=== PATIENT | female | born 1925 | race Caucasian/White ===

== ENCOUNTER 2016-08-07 08:03 | Inpatient (IN) | payer MEDICARE, OTHER ==
[~2016-08-07] VITALS: Ht 160 cm; Wt 67.2 kg
[2016-08-07] VITALS (13 sets, daily range): BP systolic 119–176; BP diastolic 47–69; PULSE 60–78; RESP 12–18; O2SAT 93–100
[~2016-08-07 08:03] MED LIST: LISI40TA PO; LOVA20TA PO
--- NOTE | 2016-08-07 08:05 | ED.REPORT ---
HPI-General Illness Date of Service Aug 07, 2016 ED Provider: Horacio Moctezuma MD An 89 year old female with a history of colon cancer, hyperlipidemia and hypertension presents to the ED via EMS complaining of weakness that began this morning. Patient arrived from [facility]. EMS report that the patient was eating breakfast when she experienced a syncopal episode and her head fell onto the table. Patient was responsive but not at her baseline. She was able to ambulate at the scene. EMS state that the patient had a second syncopal episode and became bradycardiac in the 30's-40's with pinpoint pupils upon arrival to the ED. EMS report that the patient has been having diarrhea for the past 2-3 weeks. Patient has also been experiencing increased fatigue and general malaise. Patient denies any diarrhea but reports discharging "yellow liquid". She denies any hematochezia, nausea, vomiting, fever, chills, cough, worsening confusion or recent falls. Nursing Notes Stated Complaint: WEAKNESS/DIARRHEA Chief Complaint: General Complaint Nursing Notes Reviewed: Yes Allergies: Coded Allergies: No Known Allergies (Unverified , 08/07/16) Scheduled Donepezil (Donepezil) 10 Mg Tablet 20 MG PO HS Lisinopril (Lisinopril) 20 Mg Tablet 20 MG PO DAILY Metoprolol Tartrate (Metoprolol Tartrate) 25 Mg Tablet 25 MG PO BID General Time Seen by MD: 08:05 Chief Complaint Other (Altered Mental State) Hx Obtained From: Patient, EMS Arrived By: Ambulance Sudden in Onset?: No Onset Occurred: 1 - 4 hours ago Symptom Duration: Since onset Associated with: Reports: Syncope, Weakness, Denies: Nausea, Vomiting Pertinent Negative: Pt denies other symptoms Recent Healthcare: No recent doctor visit, No recent hospitalization Past Medical History Past Medical History Notes: PCP: Dr. Juliano Navarro MD Past Medical History Reports: Cancer (Colon ), Hyperlipidemia, Hypertension Past Surgical History Colectomy 2011 Oophorectomy Reports: Cholecystectomy Smoking History Never Smoker Social History Other Social History: Good social support, Lives in detention Ambulatory Status Walker Review of Systems Limited ROS due to mental status Full Review of Systems Constitutional: Reports: Fatigue, Malaise, Denies: Chills, Fever Respiratory: Denies: Non-productive cough Cardiovascular: Denies: Chest pain GI: Reports: Diarrhea, Denies: Hematochezia, Nausea, Vomiting Neurologic: Reports: Syncope, Denies: Confusion Psychiatric: Reports: Change mental status, Denies: Confusion Complete sys rev & neg: except as marked. Physical Exam Vital Signs Vital Signs Date Time Temp Pulse Resp B/P Pulse Ox O2 Delivery O2 Flow Rate FiO2 08/07/16 11:30 65 12 119/60 98 Nasal Cannula 2 08/07/16 11:00 65 14 152/47 98 Nasal Cannula 2 08/07/16 10:30 64 15 98 Nasal Cannula 2 08/07/16 10:00 62 13 99 Nasal Cannula 2 08/07/16 09:30 66 15 100 Nasal Cannula 2 08/07/16 09:00 61 14 99 Nasal Cannula 2 08/07/16 08:30 60 16 119/48 93 Room Air 08/07/16 08:05 36.6 69 17 176/69 93 Room Air Initial VS: Reviewed Extremities: Vascular intact, Neuro intact, No swelling (No calf swelling ) , No tenderness Psychiatric: Mood/affect normal, Behavior normal, Normal thought content General/Constitutional: Awake, Alert Alertness: Positive: Confused, Somnolent Head / Eyes: Atraumatic, Normocephalic, PERRL ENT: Atraumatic, Airway patent Mouth: Positive: Mucous membranes dry Respiratory / Chest: Atraumatic, Breath sounds NL, Breath sounds = bilat Cardiovascular: Heart rate NL, Regular rhythm, Heart sounds NL, No gallop, No murmurs, No rubs Abdomen: Atraumatic, Soft, Non-tender, No distention Skin: Atraumatic, Color NL, Warm (well perfused), Dry, Intact Neurologic: Speech NL Mental Status: Positive: Confused, Somnolent NERUO: No lateralized neuro deficits Patient is moving all 4 extremities Interpretation & Diagnostics Lab Results Interpretation Result Diagram: 08/07/16 0822 08/07/16 0822 Test 08/07/16 08:22 08/07/16 08:40 08/07/16 09:54 White Blood Count 11.1th/mm3 (3.8-10.1) Red Blood Count 4.64mil/mm3 (3.90-5.20) Hemoglobin 14.5g/dL (12.0-15.6) Hematocrit 44.5% (35.0-46.0) Mean Corpuscular Volume 95.9fL (81-100) Mean Corpuscular Hemoglobin 31.3pg (27.0-35.0) Mean Corpuscular Hemoglobin Concent 32.6% (32.0-37.0) Red Cell Distribution Width 13.2% (12.3-15.4) Platelet Count 217bil/L (150-400) Neutrophils (%) (Auto) 71.7% (40-74) Lymphocytes (%) (Auto) 16.4% (14-46) Monocytes (%) (Auto) 8.8% (4-12) Eosinophils (%) (Auto) 2.5% (0-5) Basophils (%) (Auto) 0.2% (0-3) Prothrombin Time 9.7sec (8.1-12.5) Prothromb Time International Ratio 0.91ratio Sodium Level 140mEq/L (134-144) Potassium Level 4.0mEq/L (3.5-5.2) Chloride Level 104mEq/L (97-108) Carbon Dioxide Level 24mmol/L (18-29) Blood Urea Nitrogen 12mg/dL (8-27) Creatinine 0.44mg/dL (0.57-1.00) Estimat Glomerular Filtration Rate 193mL/min (>59) Glucose Level 127mg/dL (60-99) Calcium Level 9.2mg/dL (8.5-10.1) Total Bilirubin 0.6mg/dL (0.0-1.2) Aspartate Amino Transf (AST/SGOT) 20U/L (0-50) Alanine Aminotransferase (ALT/SGPT) 13U/L (0-32) Alkaline Phosphatase 64U/L (25-165) Total Protein 7.0g/dL (6.4-8.4) Albumin 4.0g/dL (3.4-5.0) Lactic Acid Level 1.5mmol/L (0.4-2.0) Urine Color Yellow (YELLOW) Urine Appearance Clear (CLEAR,HAZY) Urine pH 6.0 (5.0-8.0) Urine Specific [place] 1.025 (1.003-1.035) Urine Protein Negativemg/dL (NEG,TRACE) Urine Glucose (UA) Negativemg/dL (NEGATIVE) Urine Ketones Negativemg/dL (NEGATIVE) Urine Occult Blood Negative (NEGATIVE) Urine Nitrite Negative (NEGATIVE) Urine Bilirubin Negative (NEGATIVE) Urine Urobilinogen Normalmg/dL (NORMAL) Urine Leukocyte Esterase Trace (NEGATIVE) Urine RBC 0-2/hpf (0-2) Urine WBC 0-5/hpf (0-5) Urine Epithelial Cells Occasional/hpf (NONE-MOD) Urine Crystals None seen (NONE SEEN) Urine Bacteria None/hpf (NONE-FEW) Urine Hyaline Casts None/lpf (NONE) Urine Granular Casts None seen (NONE SEEN) Urine Waxy Casts None seen (NONE SEEN) Urine Red Blood Cell Casts None seen (NONE SEEN) Urine White Blood Cell Casts None seen (NONE SEEN) Urine Mucus Present (None Seen) Urine Trichomonas None seen (NONE SEEN) Urine Yeast None (NONE SEEN) Urinalysis Comment None Urine Culture Reflexed Indicated ECG Interpretation ECG Interpretation: Normal Sinus Rhythm with 57 bpm Normal axis Normal interval T waves inverted in lateral leads No ST elevation Time: 08:12 Interpreted by: ED physician Normal ECG Interpretation: No change from prior ECGs X-Ray Chest Interpretation Chest Xray Interpretation: IMPRESSION: No acute cardiopulmonary findings. Dictated by: Argentina June M.D. on 08/07/2016 at 9:18 Interpretation / Wet Read by: Interpret - Radiologist CT Head Interpretation IMPRESSION: 1. No acute intracranial findings. 2. Extensive findings likely associated with microvascular ischemic changes. Dictated by: Argentina June M.D. on 08/07/2016 at 9:01 Study: Head CT no contrast Interpretation / Wet Read by: Interpret - Radiologist Re-Eval/Medical Decision Med Decision/Clinical Course In summary the patient is an 89 year old female with a history of colon cancer, hyperlipidemia and hypertension who presents to the ED via EMS complaining of weakness that began this morning. Patient arrived from [facility]. EMS reports that the patient was eating breakfast when she experienced a syncopal episode and her head fell onto the table. Patient was responsive but not at her baseline. She was able to ambulate at the scene. EMS state that the patient had a second syncopal episode and became bradycardiac in the 30's-40's with pinpoint pupils upon arrival to the ED. Stat medical was called and I went immediately to the bedside to evaluate the patient. EKG was obtained demonstrating a sinus rhythm in the 60s. The patient was confused and unable to provide much history though she had a stable blood pressure and good oxygen saturation on room air. Patient was maintained on continuous cardiac monitoring and pulse oximetry. The patient reported nausea and was treated with Zofran. She appeared dehydrated and we administered IV fluids. I suspect that her dehydration is multifactorial and likely in part related to previous colectomy and significant diarrhea at baseline. The patient's altered mental status imaging was obtained as below: Head CT unremarkable Chest x-ray unremarkable Upper studies notable as below Leukocytosis of 11.3 CBC unremarkable Chemistry unremarkable Coag studies unremarkable UA equivocal for urinary tract infection Patient's mental status improved significantly during emergency department course. I discussed the patient with the admitting hospitalist requested that the patient be treated with ceftriaxone for possible urinary tract infection. 1 g of ceftriaxone was administered. Due to lack of bed availability agent was here in the emergency department though technically admitted to the hospitalist service. I was informed after admitting the patient that she was observed to be in complete heart block and then asystole on the monitor which time her nurse checked her peripheral pulses and was unable to detect a pulse. The patient reportedly was given less than 1 minute of chest compressions at which time she was noted to be awake, pulses were rechecked and were present. Vital signs thereafter were within normal limits. In reviewing the patient's telemetry I do not detect an episode of complete heart block or asystole. This was discussed further with the admitting hospitalist and the patient's family. Given that she is DNR/DNI no further attempts at CPR or be taken should she develop recurrent cardiac event. The patient remained admitted to the hospitalist service. There were no other acute events throughout my involvement in her care and she remained stable. Time of Eval: 09:35 Patient Status: Condition improved Re-Evaluation/Progress Note: Patient is rechecked. Further history is obtained from the patient's daughter. She is informed her lab results, CT results, X-ray results and diagnosis. Consultation : Referral / Consult Name: Cristobal Jackson MD Consulted With: Hospitalist Call Returned at: 11:46 Architectural Renderer: Will see patient, Agrees with eval, Agrees with plan, Accepts admit Counseled Regarding: Diagnosis, Lab results, Need for admission Discharge & Departure Primary Impression: Altered mental status Altered mental status type: unspecified Qualified Code: R41.82 - Altered mental status, unspecified Additional Impressions: Dehydration Cardiac arrest Bradycardia Asystole Diarrhea Syncope Syncope type: unspecified Qualified Code: R55 - Syncope and collapse Disposition: ADMITTED TO HOSPITAL Discharge Condition All VS Reviewed: Yes Condition: Stable Referrals: Juliano Navarro MD (PCP) Crit Care Except Billable Proc Time Spent: 135-164 minutes Services Performed: Patient management by me, Time spent at bedside, Reviewing test results, Reviewing imaging, Discussing patient care, Documentation in record, Time with fam/surrogate Scribe Attestation Portions of this note were transcribed by Subha Sandoval. I, Dr. Moctezuma personally performed the history, physical exam and medical decision-making; I reviewed and confirmed the accuracy of the information in the transcribed note. Signed by: Subha Sandoval, 08/07/16, 1147. copies to: Juliano Navarro MD, Beck O MD Aug 07, 2016 08:05 SUBHA SANDOVAL Aug 07, 2016 08:15
[2016-08-07] MEDS ORDERED: 0.9% Sodium Chloride 1,000 ML IV ONE ×2 (08:16→08:21)
[2016-08-07] MEDS ORDERED: Alum-Mag Hydrox-Simeth 30 mL Suspension PO PRN ×2 (08:20→13:30)
[2016-08-07] MEDS ORDERED: Ondansetron 2 mg/mL 2 mL Inj IVPUSH PRN ×2 (08:20→13:30)
[2016-08-07] MEDS ORDERED: Ondansetron 2 mg/mL 2 mL Inj IVPUSH ONE (08:25)
[2016-08-07 08:28] LABS: BASOPHILS % (AUTO) 0.2 % (0-3); EOSINOPHILS % (AUTO) 2.5 % (0-5); MONOCYTES % (AUTO) 8.8 % (4-12); Mean Corpuscular Hemoglobin 31.3 pg (27.0-35.0); Mean Corpuscular Volume 95.9 fL (81-100); NEUTROPHILS % (AUTO) 71.7 % (40-74); Platelet Count 217 bil/L (150-400)
[2016-08-07 08:31] LABS: INR 0.91 ratio
--- NOTE | 2016-08-07 09:03 | DRSVH ---
PROCEDURE: CT BRAIN WITHOUT CONTRAST ([id number]) INDICATIONS: ams TECHNIQUE: Noncontrast 4.5 mm thick angled axial sections acquired from the foramen magnum to the vertex, with c oronal reformats. COMPARISON: [facility], CT, BRAIN W/O CONTRAST, 04/24/2013, 9:39. FINDINGS: Image quality: Excellent. CSF spaces: Basal cisterns are patent. No extra-axial fluid collections. The ventricles are symmet heavenly in size and shape. Brain: No intracranial bleeds or masses. There is cerebral volume loss for age, with resultant vent ricular and sulcal prominence. There are periventricular and deep white matter chronic small vessel ischemic changes. There is a small left lacunar infarct. There is intracranial internal carotid arter y atherosclerosis. Skull and face: Calvarium and visualized facial bones appear intact, without suspicious lesions. Th ere is a stable right frontal osteoma or small calcified meningioma. Sinuses: Visualized sinuses and mastoids are clear. IMPRESSION: 1. No acute intracranial findings. 2. Extensive findings likely associated with microvascular ischemic changes. Dictated by: Argentina June M.D. on 08/07/2016 at 9:01 Approved by: Argentina June M.D. on 08/07/2016 at 9:01
--- NOTE | 2016-08-07 09:20 | DRSVH ---
PROCEDURE: X-RAY CHEST ONE VIEW, PORTABLE ([id number]) INDICATIONS: ALTERED MENTAL STATUS TECHNIQUE: One view of the chest was acquired. COMPARISON: [facility], , CHEST 1VW (PORTABLE), 04/24/2013, 9:23. FINDINGS: Surgical changes and devices: None. Lungs and pleura: No pleural effusions or pneumothorax. Lungs are clear. Mediastinum: Mediastinal contours appear normal. Heart size is normal. Bones and chest wall: No suspicious bony lesions. Overlying soft tissues appear unremarkable. IMPRESSION: No acute cardiopulmonary findings. Dictated by: Argentina June M.D. on 08/07/2016 at 9:18 Approved by: Argentina June M.D. on 08/07/2016 at 9:18
[2016-08-07 11:08] LABS: APPEARANCE,URINE CLEAR (CLEAR,HAZY); COLOR,URINE YELLOW (YELLOW); OCCULT BLOOD,URINE NEGATIVE (NEGATIVE); UROBILINOGEN,URINE NORMAL (NORMAL)
[2016-08-07] MEDS ORDERED: Bupivacaine-MPF 0.5% 30 mL Inj ONE (11:18)
[2016-08-07] MEDS ORDERED: Heparin 5,000 Units/500 mL NS Premix IV ONE (11:18)
[2016-08-07] MEDS ORDERED: fentaNYL-PF 50 mCg/mL 2 mL Inj ONE (11:18)
[2016-08-07] MEDS ORDERED: 0.9% Sodium Chloride 250 ML ONE ×2 (11:18→21:29)
[2016-08-07] MEDS ORDERED: cefTRIAXone Inj 1,000 MG in IV Premix 1 EACH IV ONE ×2 (11:45→22:10)
[2016-08-07] MEDS ORDERED: Polyethylene Glycol (PEG) 17 Gm Powder PO PRN (13:30)
[2016-08-07] MEDS ORDERED: 0.9% Sodium Chloride 1,000 ML ONE (13:50)
--- NOTE | 2016-08-07 14:39 | CONS ---
[address] [address] CONSULTATION REPORT PATIENT: ADAL LORA : 1925 MR#: [id number] ADMIT: 08/07/2016 JOB ID: [id number] DATE OF SERVICE: 08/07/2016 CARDIOLOGY CONSULTATION: CHIEF COMPLAINT: Fall. HISTORY OF PRESENT ILLNESS: The patient is an 89-year-old woman. She has hypertension, hyperlipidemia, memory loss. She says that her biggest issue is severe diarrheal illness with water-like stools but upon closer conversation with the patient and her daughter, they are really here because of also frequent falls. Apparently, she has paroxysmal AFib. She has had multiple falls. The patient does not recall whether she had loss of consciousness, and in particular during monitoring in the emergency department at 12:40 p.m., she went from normal sinus rhythm at 70 beats per minute to intermittent complete heart block with a very long pause. It was at least over 10 seconds. Then, she had a brief 5-beat run of VT in there and then another episode of bradycardia-mediated VT and then normal sinus rhythm was restored on its own afterwards with sternal rub. The patient does not recall this incident, and she has no complaints other than her bottom itching from her diarrhea. PAST MEDICAL HISTORY: 1. Paroxysmal AFib. The patient has never been referred to a financial systems analyst. She is closely monitored by Dr. Navarro. She is on aspirin and rate control. 2. Hypertension. 3. Hyperlipidemia. 4. Memory loss. Apparently, this patient is still able to live independently at [facility]. While she cannot do cooking or her own housework, she is still remarkably active. SOCIAL HISTORY: She lives in independent living at [facility]. She is close with her children. Her daughter Sav was at the bedside, and her son was available by phone. Sav is the patient's power of patent attorney 99. FAMILY HISTORY: No pacemaker or dysrhythmias in her family. PAST SURGICAL HISTORY: She had a colon adenoma that was removed five years ago with concurrent . REVIEW OF SYSTEMS: Significant for nausea, constant diarrhea without abdominal discomfort, history of falls in the past, and near syncope. Otherwise, 10-point review of systems is negative. ALLERGIES: No known drug allergies. HOME MEDICATIONS: 1. Toprol-XL 25 mg twice a day. 2. Lisinopril 20 mg daily. 3. Donepezil 10 mg 2 pills every night. PHYSICAL EXAMINATION: At this moment in time, heart rate is 74 beats per minute. Her blood pressure is 120/80. She is on room air, saturating 98%. Very pleasant woman. Eyes: No scleral icterus. Neck: Supple. No carotid bruits. Heart: Normal S1, S2. No murmurs. Lungs: Clear to auscultation anteriorly. Abdomen: Soft, positive bowel sounds. No hepatosplenomegaly. Extremities: Warm, well perfused. No clubbing, cyanosis, or edema. Skin: No rashes or lesions. LABORATORIES: Potassium 4. Lactic acid 1.5. Transaminases are normal. Glucose 127. CBC showed elevated white count of 11.1. INR 0.9. Urinalysis showed trace urobilinogen, occasional epithelial cells. IMAGING: Her chest x-ray showed no acute cardiopulmonary findings, and her brain CT showed old microvascular change. ASSESSMENT AND PLAN: In summary, this is an 89-year-old woman. She has paroxysmal atrial fibrillation. She had runs of nonsustained ventricular tachycardia. The plan for this patient under normal circumstances would be a permanent pacemaker implant but she declined permanent pacemaker implant. She is of sound mind. She is accompanied by her daughter who is the power of patent attorney in their family. They are completely united in the idea that she wants nothing done that would slow the natural progression of her at her age. So, as a result, we will continue to support her in this journey and will get a palliative care consultation. I am signing off at this juncture because the family does not desire any aggressive interventions, they do not desire a temporary pacemaker, they do not desire a permanent pacemaker. I did question the family that it is possible that she might be fine tomorrow and may not have this problem in the future, maybe this has to do with reaction to metoprolol. However, I told them this is very concerning and I offered them the full range of options from hospice care to invasive therapy, and they elected to go with hospice level care. Thank you very much for the opportunity to evaluate this woman.
[2016-08-07] MEDS ORDERED: LISI-567 PO (14:40)
[2016-08-07] MEDS ORDERED: METO25TA6 PO (14:40)
[2016-08-07] MEDS ORDERED: DONE10TA42 PO (14:40)
--- NOTE | 2016-08-07 16:05 | PCM.HPMED ---
Subjective Date of Service Aug 07, 2016 Primary Provider: Admitting Physician: Alonzo Pink MD Primary Care Physician: Juliano Navarro MD Attending Physician: Alonzo Pink MD Admit Status: From the Emergency Department Chief Complaint: syncope History of Present Illness: 89 yr old female with history of afib, dementia, hypertension, hyperlipidemia presented to the ER with complaint of syncope and weakness. Pt is seen with her daughter in the room, who is the DPOA. Pt reports that last night she began feeling ill, with general fatigue and diarrhea. This morning, the patient was eating breakfast at [facility] when she passed out, and 911 was called. Pt denies any fevers, chills, myalgias. She denies any dysuria, hematuria, abdominal pain nausea or vomiting. Pt reports general weakness, and shortness of breath. Pt notes that she does not use supplemental oxygen at home. While in the ER, patient sustained a long pause with 3rd degree heart block. Sternal rub performed by nurse and patient regained consciousness. Patient and family expressed that they are not interested in pacemaker placement or other invasive treatments. Discussed wishes with patient and her family. Both report that the patient is DNR/DNI, and at this time do not feel that they want to pursue any treatment. Pt is interested in comfort only, and would like to go on Hospice if possible. Pt does not want any interventions.Family and pt report they are not interested in treating the UTI or receiving anything via IV. Pt is not interested in taking any of her home medications. Family note that their focus is comfort. Review of Systems: A comprehensive review of systems was conducted with the patient and found to be negative except as above in the History of Present Illness. Allergies Coded Allergies: No Known Allergies (Unverified , 08/07/16) Home Medications Donepozil Metoprolol Lisinopril PMH 1. History of colon cancer status post partial colectomy. 2. Dementia. 3. Hypertension. 4. Hypercholesterolemia. Surgical History Hemicolectomy Tonsillectomy Cholecystectomy Ovarian cyst removal Family History non contributory Social History Hx Alcohol Use: Yes (1 CAN OF BEER SATURDAYS IN SUMMER) Hx Substance Use: No Hx Tobacco Use: No Smoking Status: Never Smoker Living Arrangement: Other ([facility]) Exam Vital Signs Vital Sign - Last Date Time Temp Pulse Resp B/P Pulse Ox O2 Delivery O2 Flow Rate FiO2 08/07/16 12:16 68 08/07/16 11:30 12 119/60 98 Nasal Cannula 2 08/07/16 08:05 36.6 Exam General: No acute distress, well-developed, well-nourished, appropriately interactive HEENT: Normocephalic, atraumatic. Anicteric sclerae, moist conjunctivae. Oropharynx with dry mucosa. Neck: Supple with full range of motion. Cardiovascular: Bradycardia and regular rhythm with no murmurs, rubs, or gallops appreciated Pulmonary: Nasal canula in placed. Pt is apneic at times. Clear to auscultation bilaterally with no crackles, wheezes, or rhonchi. Normal respiratory effort with no use of accessory muscles. Abdomen: Bowel tones present. Soft, nontender, nondistended. Extremities: No clubbing, cyanosis, edema appreciated. Skin: Normal temperature, turgor, and texture; no rash, ulcers, or subcutaneous nodules appreciated. Psychiatric: Normal mood and affect. Alert. Lab and Diagnostics Result Diagram: 08/07/1682108/07/16 0822 X-Rays, CTs and MRIs PROCEDURE: X-RAY CHEST ONE VIEW, PORTABLE ([id number]) FINDINGS: Surgical changes and devices: None. Lungs and pleura: No pleural effusions or pneumothorax. Lungs are clear. Mediastinum: Mediastinal contours appear normal. Heart size is normal. Bones and chest wall: No suspicious bony lesions. Overlying soft tissues appear unremarkable. IMPRESSION: No acute cardiopulmonary findings. Dictated by: Argentina June M.D. on 08/07/2016 at 9:18 Approved by: Argentina June M.D. on 08/07/2016 at 9:18 PROCEDURE: CT BRAIN WITHOUT CONTRAST ([id number]) FINDINGS: Image quality: Excellent. CSF spaces: Basal cisterns are patent. No extra-axial fluid collections. The ventricles are symmetric in size and shape. Brain: No intracranial bleeds or masses. There is cerebral volume loss for age , with resultant ventricular and sulcal prominence. There are periventricular and deep white matter chronic small vessel ischemic changes. There is a small left lacunar infarct. There is intracranial internal carotid artery atherosclerosis. Skull and face: Calvarium and visualized facial bones appear intact, without suspicious lesions. There is a stable right frontal osteoma or small calcified meningioma. Sinuses: Visualized sinuses and mastoids are clear. IMPRESSION: 1. No acute intracranial findings. 2. Extensive findings likely associated with microvascular ischemic changes. Dictated by: Argentina June M.D. on 08/07/2016 at 9:01 Approved by: Argentina June M.D. on 08/07/2016 at 9:01 Assessment & Plan 89 yr old female with history of afib, dementia, hypertension, hyperlipidemia presented to the ER with complaint of syncope and weakness. Acute third degree heart block with greater than 10 second pause, ongoing -While in the ER pt sustained long pause due to 3rd degree heart block -Cardiology met with family and patient and discussed treatment options -Family declines pacemaker placement or any invasive treatments Acute episodes of syncope, present on admission, ongoing -CT brain performed in ER demonstrating "No acute intracranial findings.Extensive findings likely associated with microvascular ischemic changes." -Patient declines evaluation or treatment Acute pyelonephritis, present on admission, ongoing -Patient currently denying any symptoms. -UA performed in ER demonstrating trace leukocyte esterase and WBC -Pt declines treatment or evaluation -No IV fluids, no antibiotics started End of life care issues,present on admission, ongoing -Discussed code status with patient and her daughter ( who is DPOA), pt is DNR/ DNI -Pt and family would like to sign up for Hospice -Social Work has contacted Hospice, and they will see patient today. PCP: Dr Navarro Pain Evaluation: Adequate Pain Control Resuscitation Status: DNR/DNI:Do Not Resuscitate/Intubate Attending Statement The patient was seen and examined together with Dr. Arora on 08/08/2016 and I agree with the history, exam and plan as outlined in the note above. Oxana Arora DO Aug 07, 2016 13:32 Sergio Copeland MD Aug 08, 2016 09:43
--- NOTE | 2016-08-07 18:47 | NUR ---
Heart Block Pt. placed on tele per orders this a.m. Shortly after placement, pt. went into complete heart block at 1235 for around 20 seconds. Pt. came to spontaneously and remained oriented after episode. Nursing staff present immediately after monitor alarm. paged and was in the room shortly after. Vitals before and after remain stable. had discussion with pt. and pts. daughter to confirm code status. Pt. wishes to have no interventions done in the event of another episode. Cardiology and palliative consulted.
--- NOTE | 2016-08-07 21:00 | NUR ---
confusion patient confused. believes she is "at home." reoriented to place and time. patient states "i have no idea how i came here." explained to patient the course of the day, patient appears to have no recollection of the events. bed alarm on for safety. patient reassured. care ongoing.
[2016-08-08 01:00] VITALS: BP 128/64; PULSE 68; RESP 18; O2SAT 95
--- NOTE | 2016-08-08 03:00 | NUR ---
out of bed patient standing next to bed without asking for assistance. bed alarm ringing. placed safely back in bed. bed alarm on. door open. light on. patient reoriented.
[2016-08-08 08:42] VITALS: BP 150/73; PULSE 69; RESP 14; O2SAT 96
--- NOTE | 2016-08-08 11:08 | NUR ---
Social Work Note - Initial Assessment Chelsy Crawford is a 89 yr old who was admitted for altered mental status - found to have cardiac issues. EMR reviewed: Pt has Medicare and [facility] supplement. Her PCP is Dr Navarro. See CM initial assessment. RHEUMATOLOGY SPECIALIST met with pt - pt's DPOA/daughter Sav also in the room. Pt lives in [facility] - Independent. She has been independent at baseline - does not use any assistive devices. She goes to meals at the community room. She has no previous SNF placements, no hx of Home health. Initially, Pt was found to have a heart block - Family was concerned that she would not improve medically and [facility] came yesterday to discuss options for hospice. Pt has made improvements, is alert and oriented and family would like to consider rehab for Pt instead of hospice. RHEUMATOLOGY SPECIALIST updated [facility] . Palliative care consult is pending. RHEUMATOLOGY SPECIALIST will ask MD for a PT evaluation. Daughter would like pt to go to [facility] if Pt is eligible. Plan: PT evaluation for SNF - Pending medical course. SAM Mooney
--- NOTE | 2016-08-08 11:50 | NUR ---
Case Management: OBS brochure given and explained to pt and daughter Sav at 11:30. Lyndsey TAY RN
[2016-08-08 11:52] VITALS: BP 130/71; PULSE 63; RESP 16; O2SAT 93
--- NOTE | 2016-08-08 14:14 | NUR ---
ECHO Echo is being done at the bedside at this time.
--- NOTE | 2016-08-08 14:15 | NUR ---
ACTIVITY Patient is alert and oriented to person only. Denies chest pain. Tolerating liquids PO and diet well. Denies nausea. No emesis noted. Denies SOB. Family is at the bedside at this time. Addendum: 08/08/16 at 1436 by LUIS TEJEDA RN TRANSFER Report given to Yanira Carpenter RN. Patient will transfer to room [facility] when ECHO is done. Addendum: 08/08/16 at 1513 by LUIS TEJEDA RN TRANSFER Transferred to [facility] room 300.
[2016-08-08 15:06] VITALS: BP 156/77; PULSE 61; RESP 18; O2SAT 94
--- NOTE | 2016-08-08 15:08 | NUR ---
Transfer Pt transferred from ED to [facility] rm 3007, report received from Haile Gorman RN. Pt arrived in bed, alert and happy with daughter.
--- NOTE | 2016-08-08 15:55 | DRSVH ---
Located Within [facility] [address] [place] [address] Echocardiogram Report Name: ADAL LORA JStudy Date: 08/08/2016 Height: 64 in Hospital Exam Location: [facility] Weight: 145 lb Gender: Female BSA: 1.7 m2 : 1925 Age: 89 yrs BP: 130/71 mmHg Reason For Study: ASYSTOLE Ordering Physician: Performed By: Yanelis Noel Referring Physician: Dr. Juliano Navarro Interpretation Summary The left ventricle is normal in size. The ejection fraction is estimated to be 60-65%. LVEF has not changed significantly. Left ventricular wall motion is normal. Assessment of diastolic parameters indicates a relaxation abnormality of the left ventricle, consistent with normal filling pressures. The right ventricle is normal in size and function. The right ventricular systolic pressure is estimated at 24 mmHg assuming a right atrial pressure of 8 mm Hg. The left atrium is moderately dilated. Right atrial size is normal. There is no significant valvular heart disease. The ascending aorta is mildly enlarged, which has slightly increased in size. The aortic arch is mildly enlarged (3.5 cm) which has increased as well. Previous measurement was 2.3 cm. Procedure: A two-dimensional transthoracic echocardiogram with color flow and Doppler was performed. The study quality was technically adequate. Comparison is made with the echocardiogram of 04/24/2013. The patient was in normal sinus rhythm during the exam. Left Ventricle: The left ventricle is normal in size. Left ventricular wall thickness is at the upper limits of normal. The ejection fraction is estimated to be 60-65%. Left ventricular wall motion is normal. Spectral Doppler of the mitral inflow yields an E/A ratio that is between 0.8 and 1.5. Assessment of diastolic parameters indicates a relaxation abnormality of the left ventricle, consistent with normal filling pressures. Right Ventricle: The right ventricle is normal in size and function. Atria: The left atrium is moderately dilated. Right atrial size is normal. The interatrial septum is intact with no evidence for an atrial septal defect. There is no Doppler evidence for an interatrial shunt. Mitral Valve: The mitral valve is grossly normal. There is no mitral regurgitation noted. Aortic Valve: The aortic valve is normal in structure and function. No aortic regurgitation is present. Tricuspid Valve: The tricuspid valve is not well visualized, but is grossly normal. There is a trace or physiologic amount of tricuspid regurgitation. The right ventricular systolic pressure is estimated at 24 mmHg assuming a right atrial pressure of 8 mm Hg. Pulmonic Valve: The pulmonic valve is not well seen, but is grossly normal. There is a trace or physiologic amount of pulmonic regurgitation. There is no significant valvular heart disease. Great Vessels: The aortic root is normal size. The ascending aorta is mildly enlarged. The aortic arch is mildly enlarged. Mild atherosclerotic plaque(s) in the aortic arch. The IVC is of normal diameter and collapses less than 50% with a sniff. This suggests a right atrial pressure of 8 mm Hg. Pericardium/ Pleura There is an anterior echo-free space consistent with a fat pad. There is no pericardial effusion. MMode/2D Measurements & Calculations LVIDd: 4.3 cm RA long axis LVOT diam: 2.1 cm LVIDs: 2.6 cm LA A2 area: 21.7 cm AoV Openin.0 cm FS: 39.5 % LA A4 area: 19.1 cm RA area Ao root diam: 3.4 cm IVSd: 0.96 cm LA length (vol) Aortic Jxn: 2.8 cm LVPWd: 0.95 cm : 14.0 cm asc Aorta Diam LA vol: 74.9 ml RA vol LA vol index : 34.7 ml Ao Arch Diam RA (Proximal trans.) : 20.3 mm/ IVC diam: 1.8 cm RVDd minor : 2.8 cm LV trevino. diameter/BSALV sys. diameter/BSA (cm/m^2): 2.5 (cm/m^2): 1.5 Doppler Measurements & Calculations Ao V2 max MV E max aaron MV E/A: 0.93 TR max aaron : 112.5 cm/sec : 75.7 cm/sec Med Peak E' Aaron : 200.2 cm/sec Ao max PG MV A max aaron TR max PG : 5.1 mmHg : 81.5 cm/sec E/E' med: 10.9 : 16.0 mmHg Ao mean PG MV P1/2t: 71.9 msec Pulm A Revs Dur PA V2 max : 96.3 cm/sec LVOT Max Aaron MV A dur: 0.11 sec PA mean PG : 93.1 cm/sec ALEENA(I,D): 3.1 cm PA Accel Time sev ratio : 0.12 sec MV dec time MV P1/2t max aaron Ao V2 mean LV V1 max PG : 0.25 sec : 76.1 cm/sec Ao V2 VTI: 24.0 cm LV V1 VTI MVA(P1/2t): 3.1 cm2 : 21.2 cm ALEENA(V,D): 2.9 cm2 PA V2 mean ALEENA indexed to BSA Pulm A Revs Dur - MV A : 61.3 cm/sec (cm^2/m^2): 1.8 Dur: -0.01 msec Reading Physician:NICOLE
[2016-08-08 16:13] VITALS: PULSE 65
--- NOTE | 2016-08-08 16:51 | PCM.PNMED ---
Subjective Date of Service Aug 08, 2016 Subjective Patient reports that she is feeling better. She denies any fevers, chills, myalgia, dysuria or hematuria. Per the family, because the patient appears to be doing better, they are interested in pacemaker placement and further treatment. Family would like to discuss have pacemaker placed with Cardiology and possible discharge to SNF for rehab. Exam Vital Signs Vital Sign - Last Date Time Temp Pulse Resp B/P Pulse Ox O2 Delivery O2 Flow Rate FiO2 08/08/16 16:13 65 08/08/16 15:06 36.9 18 156/77 94 Room Air 08/07/16 16:12 1.00 Exam General: No acute distress, well-developed, well-nourished, appropriately interactive HEENT: Normocephalic, atraumatic. Anicteric sclerae, moist conjunctivae. Oropharynx with dry mucosa. Neck: Supple with full range of motion. Cardiovascular: Bradycardia and regular rhythm with no murmurs, rubs, or gallops appreciated Pulmonary: Clear to auscultation bilaterally with no crackles, wheezes, or rhonchi. Normal respiratory effort with no use of accessory muscles. Abdomen: Bowel tones present. Soft, nontender, nondistended. Extremities: No clubbing, cyanosis, edema appreciated. Skin: Normal temperature, turgor, and texture; no rash, ulcers, or subcutaneous nodules appreciated. Psychiatric: Normal mood and affect. Alert. IVs and Medications Medications Reviewed: Medications were reviewed in detail Lab and Diagnostics Result Diagram: 08/07/16 0822 08/07/16 0822 X-Rays, CTs and MRIs PROCEDURE: X-RAY CHEST ONE VIEW, PORTABLE ([id number]) FINDINGS: Surgical changes and devices: None. Lungs and pleura: No pleural effusions or pneumothorax. Lungs are clear. Mediastinum: Mediastinal contours appear normal. Heart size is normal. Bones and chest wall: No suspicious bony lesions. Overlying soft tissues appear unremarkable. IMPRESSION: No acute cardiopulmonary findings. Dictated by: Argentina June M.D. on 08/07/2016 at 9:18 Approved by: Argentina June M.D. on 08/07/2016 at 9:18 PROCEDURE: CT BRAIN WITHOUT CONTRAST ([id number]) FINDINGS: Image quality: Excellent. CSF spaces: Basal cisterns are patent. No extra-axial fluid collections. The ventricles are symmetric in size and shape. Brain: No intracranial bleeds or masses. There is cerebral volume loss for age , with resultant ventricular and sulcal prominence. There are periventricular and deep white matter chronic small vessel ischemic changes. There is a small left lacunar infarct. There is intracranial internal carotid artery atherosclerosis. Skull and face: Calvarium and visualized facial bones appear intact, without suspicious lesions. There is a stable right frontal osteoma or small calcified meningioma. Sinuses: Visualized sinuses and mastoids are clear. IMPRESSION: 1. No acute intracranial findings. 2. Extensive findings likely associated with microvascular ischemic changes. Dictated by: Argentina June M.D. on 08/07/2016 at 9:01 Approved by: Argentina June M.D. on 08/07/2016 at 9:01 Assessment & Plan 89 yr old female with history of afib, dementia, hypertension, hyperlipidemia presented to the ER with complaint of syncope and weakness. Acute third degree heart block with greater than 10 second pause, ongoing -While in the ER pt sustained long pause due to 3rd degree heart block -At admission, Cardiology met with family and patient and discussed treatment options, at that time that declined pacemaker placement or any invasive treatments -Today pt's family requesting Cardiology consult to discuss pacemaker placement. Acute episodes of syncope, present on admission, ongoing -CT brain performed in ER demonstrating "No acute intracranial findings.Extensive findings likely associated with microvascular ischemic changes." -Family initially declined treatment or evaluation. -Today pt's family requesting Cardiology consult to discuss pacemaker placement. Acute pyelonephritis, present on admission, ongoing -Patient currently denying any symptoms. -UA performed in ER demonstrating trace leukocyte esterase and WBC -Urine culture with no growth to date End of life care issues,present on admission, ongoing -Discussed code status with patient and her daughter ( who is DPOA), pt is DNR/ DNI -Pt and family met with Hospice, but at this time are not interested in going to Hospice. -Pt now interested in treatment and eventual discharge to SNF for rehab. PCP: Dr Navarro Pain Evaluation: Adequate Pain Control VTE Prophylaxis: SCDs Resuscitation Status: DNR/DNI:Do Not Resuscitate/Intubate Attending Statement The patient was seen and examined together with Dr. Arora on 08/08/2015 and I agree with the history, exam and plan as outlined in the note above. Oxana Arora DO Aug 08, 2016 16:51 Sergio Copeland MD Aug 09, 2016 10:10
[2016-08-08] MEDS: Sodium Chloride LOK Flush 10 mL Syringe IVFLUSH SCH (18:29)
[2016-08-08 21:17] VITALS: BP 179/75; PULSE 65; RESP 18; O2SAT 94
[2016-08-09] VITALS (16 sets, daily range): BP systolic 161–192; BP diastolic 61–84; PULSE 59–68; RESP 12–21; O2SAT 93–97
[2016-08-09] MEDS: Sodium Chloride LOK Flush 10 mL Syringe IVFLUSH SCH ×3 (00:31→17:11)
[2016-08-09 06:00] LABS: BASOPHILS % (AUTO) 0.3 % (0-3); EOSINOPHILS % (AUTO) 3.9 % (0-5); MONOCYTES % (AUTO) 14.8 % (4-12); Mean Corpuscular Hemoglobin 31.6 pg (27.0-35.0); Mean Corpuscular Volume 95.7 fL (81-100); NEUTROPHILS % (AUTO) 56.9 % (40-74); Platelet Count 165 bil/L (150-400)
[2016-08-09] MEDS ORDERED: CeFAZolin Inj 2 GM in IV Premix 1 EACH IV SCH (06:00)
[2016-08-09] MEDS ORDERED: 0.9% Sodium Chloride 1,000 ML IV PRN (06:00)
[2016-08-09 06:37] LABS: INR 0.93 ratio
[2016-08-09] MEDS ORDERED: CeFAZolin 2 Gm/50 mL D5W Duplex Bag IV ONE (08:58)
--- NOTE | 2016-08-09 09:29 | NUR ---
Off Floor Pt transferred to lab head for procedure at 0845.
[2016-08-09] MEDS ORDERED: HYDROcodone-APAP 5-325 mg Tablet PO PRN (10:05)
[2016-08-09] MEDS: 0.9% Sodium Chloride 1,000 ML IV SCH ×2 (10:05→17:08)
--- NOTE | 2016-08-09 10:39 | CONS ---
[address] [address] CONSULTATION REPORT PATIENT: ADAL LORA : 1925 MR#: [id number] ADMIT: 08/07/2016 JOB ID: [id number] DATE OF SERVICE: 08/09/2016 REQUESTING PHYSICIAN: Yelena Fay MD REASON FOR CONSULTATION: Syncope and intermittent complete heart block. PROBLEM LIST: 1. Intermittent complete heart block with witnessed syncope in the ER (reason for current hospitalization). 2. Paroxysmal atrial fibrillation. 3. Systemic hypertension. 4. Structurally normal heart with preserved biventricular function. MEDICATIONS: 1. Lisinopril 40 mg daily. 2. Lovastatin 20 mg daily. 3. Metoprolol 25 mg twice daily. IDENTIFICATION/HISTORY OF PRESENT ILLNESS: The patient is a pleasant 89-year-old woman with a structurally normal heart, systemic hypertension, and paroxysmal atrial fibrillation for which she was on low-dose beta blockade. She has had multiple syncopal episodes and falls. Ultimately, she presented to the ED the day before yesterday with a syncopal episode witnessed at her long term. In the ER, she had another episode, this time while on telemetry. She had a 15-20 second period of complete heart block during which she lost consciousness. Her beta blockade was stopped. An echocardiogram was obtained showing preserved biventricular function, and ultimately I had a meeting with her to discuss pacemaker implantation. She has had multiple falls as evidenced by discussion with her daughter. Some of these were mechanical falls. Others appeared to be loss of consciousness. Her syncope history dates back three years when she was admitted and first diagnosed with atrial fibrillation. IMPRESSION AND RECOMMENDATION: The patient is a pleasant 89-year-old woman with a structurally normal heart, systemic hypertension, paroxysmal atrial fibrillation, and recurrent syncope, now with a witnessed intermittent complete heart block. I recommended a dual-chamber pacemaker implantation. I discussed the risks and benefits with her and her daughter at length. Ultimately, she and her daughter wished to proceed. PLAN: Dual-chamber pacemaker implantation. Thank you very much for allowing me to participate in the care of this patient. Please call with any questions. I spent approximately 1 hour with this patient coordinating her care and reviewing her chart. Greater than 50% of this time was spent in counseling.
--- NOTE | 2016-08-09 10:46 | OP ---
[address] [address] OPERATIVE REPORT PATIENT: ADAL LORA : 1925 MR#: [id number] ADMIT: 08/07/2016 JOB ID: [id number] DATE OF SURGERY: 08/09/2016 PREOPERATIVE DIAGNOSIS(ES): 1. Intermittent complete heart block. 2. Syncope. POSTOPERATIVE DIAGNOSIS(ES): 1. Intermittent complete heart block. 2. Syncope. PROCEDURES PERFORMED: 1. Dual-chamber pacemaker implantation. 2. Left upper extremity venogram. 3. Fluoroscopy. SURGEON: Avel Walsh MD, electrophysiology attending. GUNCOTTON PACKER: Edwardo Mercado IMPLANTED DEVICES: 1. [employer] pulse generator, model OM1357, serial #[id number]. 2. Right atrial lead [employer], 2088TC, 46 cm, serial #[id number]. 3. RV lead [employer], 2088TC, 52 cm, serial #[id number]. ANESTHESIA: Bolus dosing of Versed and fentanyl were utilized for an appropriate level of sedation. INDICATION: The patient a pleasant 89-year-old woman with a structurally normal heart, syncope, and witnessed intermittent complete heart block. After discussion of risks and benefits of pacemaker implantation, she opted to proceed. PROCEDURAL DESCRIPTION: Following informed signed consent, the patient was taken to the EP laboratory in a fasting nonsedated state, where she was prepped and draped the usual sterile fashion. The left infraclavicular region was infiltrated with 40 cc of a 50/50 mixture bupivacaine and lidocaine. Once adequate anesthesia had been achieved, a 3 cm transverse incision was performed 2 cm below the left clavicle. Dissection was carried down to the pectoralis fascia, and a pocket was then fashioned using combination of electrocautery and blunt dissection. Once adequate hemostasis had been achieved, attempts to access the left axillary vein over the first rib with a micropuncture needle were unsuccessful. A left upper extremity venogram was performed. Under venographic guidance, the vessel was cannulated twice with a micropuncture needle to deploy two 0.035, 3 mm J guidewires. Over the first of these, a 6-Greek tear-away sheath was advanced. Once the guidewire was removed, an active fixation lead was advanced to the RV outflow tract 1 cm over the apex. The lead was affixed in position using its associated active fixation screw. It was connected to external analyzer and demonstrated appropriately sensed R waves, impedance, capture threshold. Lead was checked at 10 V, and there was no evidence of diaphragmatic stimulation. Over the other previously deployed J guidewire, another 6-Greek tear-away sheath was advanced. Once the guidewire was removed, an active fixation lead was advanced to the right atrial appendage. It was affixed in position using its associated active fixation screw. The lead was connected to the external analyzer and demonstrated appropriately sensed P waves, impedance, and capture threshold. The lead was checked at 10 V, and there was no evidence of diaphragmatic stimulation. Once the position and redundancy of both leads were confirmed with multiple fluoroscopic views, the leads were anchored to the prepectoralis fascia using their associated anchoring sleeves and 2-0 Ethibond sutures. The pocket was then copiously irrigated with antibiotic solution. It was connected to a generator. The generator was placed into the pocket. It was affixed to the floor of the pocket using 1-0 Ti-Cron suture. The incision was then closed with running layers of absorbable suture. The wound was dressed with skin adhesive and a small dressing. At the end of the procedure, the needle, sponge, and instrument counts were all correct. COMPLICATIONS: None. ESTIMATED BLOOD LOSS: Negligible. DEVICE MEASURED DATA: 1. Right atrial lead 3.5 mV, 410 ohms, 1.75 V at 0.4 msec. 2. RV lead greater than 12 mV, 690 ohms, 0.5 V at 0.4 msec. FINAL PROGRAM PARAMETERS: DDD 60-130 beats per minute. IMPRESSION: Successful dual-chamber pacemaker implantation. PLAN: 1. Stat portable chest x-ray. Obtain PA and lateral chest x-ray in the morning. 2. Device interrogation in the morning. 3. IV Ancef through tomorrow. 4. Keflex x7 days starting tomorrow. 5. Wound check in one week. ATTENDING STATEMENT: Avel Walsh MD, electrophysiology attending, was present for and supervised/performed all aspects of this procedure.
--- NOTE | 2016-08-09 10:57 | NUR ---
GEORGE: Pt arrived from [facility] at 1030 to [facility] bed 9, left chest dressing C/D/I, ice pack placed over site and sling on L arm. Chest Xray taken. Pt education and reinforcement about not using L arm. No c/o pain. Tolerating po intake of water. HR 60-70s
--- NOTE | 2016-08-09 10:58 | NUR ---
Palliative Care Order for Palliative Care cancelled per Dr Arora 08/09/16. PC did not see this patient. Mary Rodriguez
--- NOTE | 2016-08-09 11:57 | DRSVH ---
PROCEDURE: X-RAY CHEST ONE VIEW, PORTABLE ([id number]) INDICATIONS: For new leads placed TECHNIQUE: One view of the chest was acquired. COMPARISON: [facility], CR, XR CHEST 1VW (PORTABLE), 08/07/2016, 8:22. FINDINGS: Surgical changes and devices: There is a new left chest wall dual-lead pacemaker with leads projectin g over the right atrium and right ventricle. Lungs and pleura: No pleural effusions or pneumothorax. There is hyperinflation of the lungs with f lattening of the hemidiaphragms compatible with COPD. No acute consolidation. Mediastinum: Mediastinal contours appear unchanged. Heart size is within normal limits. Bones and chest wall: No suspicious bony lesions. Overlying soft tissues appear unremarkable. IMPRESSION: 1. No evidence of pneumothorax. 2. Findings compatible with COPD redemonstrated. Dictated by: Yong Damon M.D. on 08/09/2016 at 11:56 Approved by: Yong Damon M.D. on 08/09/2016 at 11:56
--- NOTE | 2016-08-09 12:48 | NUR ---
GEORGE ASSUMED CARE OF PT AT 1145. LEFT CHEST DRSG HAS REMAINED C/D/I, NO BLEEDING OR HEMATOMA NOTED. SLING IS ALSO ON LEFT ARM AND PT IS REMINDED REPEATEDLY OF LIMITATIONS TO LEFT ARM. PT IS TAKING FLUIDS AND CRACKERS WITHOUT DIFFICULTY AND VOIDING PER BEDPAN. PT, AND HER NURSING CARE, WERE TRANSFERRED BACK TO ROOM 3007 AT 1240. BEDSIDE REPORT AND RN TO RN HANDOFF WAS DONE WITH FANTA Barrera RN. TELE CONFIRMED WITH PLANT CYTOLOGIST.
--- NOTE | 2016-08-09 15:22 | NUR ---
Case Management: COS to IP. IMM explained to patient and family at 1506, signed copy placed in chart, patient given a copy. Abby Fiore RN
[2016-08-09] MEDS: CeFAZolin Inj 1 GM in IV Premix 1 EACH IV SCH (17:07)
--- NOTE | 2016-08-09 19:20 | PCM.PNMED ---
Subjective Date of Service Aug 09, 2016 Subjective Patient is feeling better overall. Pt continues to be somewhat confused regarding what day it is. Pt reports that she is feeling very tired following her procedure Exam Vital Signs Vital Sign - Last Date Time Temp Pulse Resp B/P Pulse Ox O2 Delivery O2 Flow Rate FiO2 08/09/16 06:39 63 08/09/16 05:10 36.9 16 168/70 93 Room Air 08/07/16 16:12 1.00 Intake and Output 08/08/16 08/08/16 08/09/16 Cumulative From/Thru 15:00 23:00 07:00 08/08/16 08:59 - 08/09/16 06:55 Intake Total 236 ml 436 ml 672 ml Output Total 475 ml 750 ml 1225 ml Balance -239 ml -314 ml -553 ml Intake Oral 236 ml 436 ml 672 ml Output Urine Total 475 ml 750 ml 1225 ml # Voids 1 1 # Bowel Movements 0 0 0 Exam General: No acute distress, well-developed, well-nourished, appropriately interactive HEENT: Normocephalic, atraumatic. Anicteric sclerae, moist conjunctivae. Oropharynx with dry mucosa. Neck: Supple with full range of motion. Cardiovascular: Bradycardia and regular rhythm with no murmurs, rubs, or gallops appreciated Pulmonary: Clear to auscultation bilaterally with no crackles, wheezes, or rhonchi. Normal respiratory effort with no use of accessory muscles. Abdomen: Bowel tones present. Soft, nontender, nondistended. Extremities: No clubbing, cyanosis, edema appreciated. Skin: Normal temperature, turgor, and texture; no rash, ulcers, or subcutaneous nodules appreciated. Psychiatric: Normal mood and affect. Alert. IVs and Medications Medications Reviewed: Medications were reviewed in detail Lab and Diagnostics Result Diagram: 08/09/1630 08/09/16 0530 X-Rays, CTs and MRIs PROCEDURE: X-RAY CHEST ONE VIEW, PORTABLE ([id number]) FINDINGS: Surgical changes and devices: None. Lungs and pleura: No pleural effusions or pneumothorax. Lungs are clear. Mediastinum: Mediastinal contours appear normal. Heart size is normal. Bones and chest wall: No suspicious bony lesions. Overlying soft tissues appear unremarkable. IMPRESSION: No acute cardiopulmonary findings. Dictated by: Argentina June M.D. on 08/07/2016 at 9:18 Approved by: Argentina June M.D. on 08/07/2016 at 9:18 PROCEDURE: CT BRAIN WITHOUT CONTRAST ([id number]) FINDINGS: Image quality: Excellent. CSF spaces: Basal cisterns are patent. No extra-axial fluid collections. The ventricles are symmetric in size and shape. Brain: No intracranial bleeds or masses. There is cerebral volume loss for age , with resultant ventricular and sulcal prominence. There are periventricular and deep white matter chronic small vessel ischemic changes. There is a small left lacunar infarct. There is intracranial internal carotid artery atherosclerosis. Skull and face: Calvarium and visualized facial bones appear intact, without suspicious lesions. There is a stable right frontal osteoma or small calcified meningioma. Sinuses: Visualized sinuses and mastoids are clear. IMPRESSION: 1. No acute intracranial findings. 2. Extensive findings likely associated with microvascular ischemic changes. Dictated by: Argentina June M.D. on 08/07/2016 at 9:01 Approved by: Argentina June M.D. on 08/07/2016 at 9:01 Assessment & Plan 89 yr old female with history of afib, dementia, hypertension, hyperlipidemia presented to the ER with complaint of syncope and weakness. Acute third degree heart block with greater than 10 second pause, ongoing -While in the ER pt sustained long pause due to 3rd degree heart block -At admission, Cardiology met with family and patient and discussed treatment options, at that time that declined pacemaker placement or any invasive treatments -Pt underwent Pacemaker placement today(08/09/16) Acute episodes of syncope, present on admission, ongoing -CT brain performed in ER demonstrating "No acute intracranial findings.Extensive findings likely associated with microvascular ischemic changes." -Family initially declined treatment or evaluation. -Pt underwent Pacemaker placement today(08/09/16) Acute pyelonephritis, present on admission, ongoing -Patient currently denying any symptoms. -UA performed in ER demonstrating trace leukocyte esterase and WBC -Urine culture with no growth to date End of life care issues,present on admission, ongoing -Discussed code status with patient and her daughter ( who is DPOA), pt is DNR/ DNI -Pt and family met with Hospice, but at this time are not interested in going to Hospice. -Pt now interested in treatment and eventual discharge to SNF for rehab. PCP: Dr Navarro VTE Prophylaxis: SCDs Resuscitation Status: DNR/DNI:Do Not Resuscitate/Intubate Attending Statement The patient was seen and examined together with Dr. Arora on 08/09/2016 and I agree with the history, exam and plan as outlined in the note above. Oxana Arora DO Aug 09, 2016 08:10 Sergio Copeland MD Aug 10, 2016 10:06
[2016-08-10] VITALS (8 sets, daily range): BP systolic 143–173; BP diastolic 69–92; PULSE 64–87; RESP 18–19; O2SAT 92–96
[2016-08-10] MEDS: CeFAZolin Inj 1 GM in IV Premix 1 EACH IV SCH (00:30)
[2016-08-10] MEDS: Sodium Chloride LOK Flush 10 mL Syringe IVFLUSH SCH ×3 (00:38→16:30)
[2016-08-10 05:46] LABS: BASOPHILS % (AUTO) 0.2 % (0-3); EOSINOPHILS % (AUTO) 4.1 % (0-5); MONOCYTES % (AUTO) 11.9 % (4-12); Mean Corpuscular Hemoglobin 31.3 pg (27.0-35.0); Mean Corpuscular Volume 95.3 fL (81-100); NEUTROPHILS % (AUTO) 60.9 % (40-74); Platelet Count 159 bil/L (150-400)
[2016-08-10] MEDS: 0.9% Sodium Chloride 1,000 ML IV SCH ×2 (06:05→22:54)
--- NOTE | 2016-08-10 09:08 | DRSVH ---
PROCEDURE: X-RAY CHEST, TWO VIEWS ([id number]) INDICATIONS: For new lead placement TECHNIQUE: 2 views of the chest were acquired. COMPARISON: 08/09/2016 FINDINGS: Surgical changes and devices: Permanent pacemaker. Lungs and pleura: Slight blunting of the costophrenic angles suggest small pleural effusions, no pneu mothorax. Slight increase in interstitial markings at the lung bases could reflect mild pulmonary katty ma. Chronic volume loss right upper lobe. Lungs are otherwise clear. Mediastinum: Mediastinal contours are normal. Heart size is normal. Bones and chest wall: No suspicious bony abnormalities. Chronic compression fracture T12. Soft tissu es appear unremarkable. IMPRESSION: 1. Status post permanent dual lead pacemaker. 2. Small bilateral pleural effusions. Possible mild fluid overload. Dictated by: Nirmal Morales M.D. on 08/10/2016 at 9:06 Approved by: Nirmal Morales M.D. on 08/10/2016 at 9:06
[2016-08-10] MEDS ORDERED: CEPH-512 PO (09:27)
[2016-08-10] MEDS ORDERED: CeFAZolin Inj 1 GM in IV Premix 1 EACH IV ONE (12:35)
[2016-08-10] MEDS ORDERED: KCl 40 mEq/D5W 500 mL 40 MEQ in IV Premix 1 EACH IV ONE (12:35)
--- NOTE | 2016-08-10 15:11 | NUR ---
Evaluation completed. Please go to "Notes" then click on "Assessments and Notes" (bottom left corner of screen). Then select appropriate discipline tab on top of screen.
--- NOTE | 2016-08-10 18:17 | NUR ---
Memory Patient pleasant/cooperative, but forgetful. Needs multiple reminders to not use Lt arm following pacemaker placement. Patient forgets reason for IV medications/instruction/teaching/why she remains in hospital. Seems unaware for the reason Axel alarm is triggered when she stands. Reinforcement needed continually.
--- NOTE | 2016-08-10 20:06 | PCM.PNMED ---
Subjective Date of Service Aug 10, 2016 Subjective Patient is reports that she is feeling well today. She is eager to go home. Pt is slightly confused, does not recall seeing me yesterday and is unclear about how long she has been in the hospital, stating "I wanna go home, I have been here for weeks". Pt denies any shortness of breath, chest pain, nausea, vomiting, or diarrhea. Pt reports that she ate some breakfast without any issue. Pt reports she is mildly constipated and cannot recall when she last had a bowel movement. Exam Vital Signs Vital Sign - Last Date Time Temp Pulse Resp B/P Pulse Ox O2 Delivery O2 Flow Rate FiO2 08/10/16 16:49 36.7 76 19 155/80 95 Room Air 08/07/16 16:12 1.00 Intake and Output 08/09/16 08/09/16 08/10/16 Cumulative From/Thru 15:00 23:00 07:00 08/08/16 08:59 - 08/09/16 18:15 Intake Total 472 ml 1144 ml Output Total 150 ml 200 ml 1575 ml Balance -150 ml 272 ml -431 ml Intake Oral 472 ml 1144 ml Output Urine Total 150 ml 200 ml 1575 ml # Voids 4 5 # Bowel Movements 0 0 Exam General: No acute distress, well-developed, well-nourished, appropriately interactive. Sitting in chair combing her hair HEENT: Normocephalic, atraumatic. Anicteric sclerae, moist conjunctivae. Oropharynx with moist mucosa. Neck: Supple with full range of motion. Cardiovascular: Mild bradycardia and regular rhythm with no murmurs, rubs, or gallops appreciated Pulmonary: Clear to auscultation bilaterally with no crackles, wheezes, or rhonchi. Normal respiratory effort with no use of accessory muscles. Abdomen: Bowel tones present. Soft, nontender, nondistended. Extremities: Left arm in sling.No clubbing, cyanosis, edema appreciated. Skin: Normal temperature, turgor, and texture; no rash, ulcers, or subcutaneous nodules appreciated. Psychiatric: Normal mood and affect. Alert.Oriented to place, not time. Some memory issues evident. IVs and Medications Medications Reviewed: Medications were reviewed in detail Lab and Diagnostics Result Diagram: 08/10/16 0505 08/10/16 0505 X-Rays, CTs and MRIs PROCEDURE: X-RAY CHEST ONE VIEW, PORTABLE ([id number]) FINDINGS: Surgical changes and devices: None. Lungs and pleura: No pleural effusions or pneumothorax. Lungs are clear. Mediastinum: Mediastinal contours appear normal. Heart size is normal. Bones and chest wall: No suspicious bony lesions. Overlying soft tissues appear unremarkable. IMPRESSION: No acute cardiopulmonary findings. Dictated by: Argentina June M.D. on 08/07/2016 at 9:18 Approved by: Argentina Jnue M.D. on 08/07/2016 at 9:18 PROCEDURE: CT BRAIN WITHOUT CONTRAST ([id number]) FINDINGS: Image quality: Excellent. CSF spaces: Basal cisterns are patent. No extra-axial fluid collections. The ventricles are symmetric in size and shape. Brain: No intracranial bleeds or masses. There is cerebral volume loss for age , with resultant ventricular and sulcal prominence. There are periventricular and deep white matter chronic small vessel ischemic changes. There is a small left lacunar infarct. There is intracranial internal carotid artery atherosclerosis. Skull and face: Calvarium and visualized facial bones appear intact, without suspicious lesions. There is a stable right frontal osteoma or small calcified meningioma. Sinuses: Visualized sinuses and mastoids are clear. IMPRESSION: 1. No acute intracranial findings. 2. Extensive findings likely associated with microvascular ischemic changes. Dictated by: Argentina June M.D. on 08/07/2016 at 9:01 Approved by: Argentina June M.D. on 08/07/2016 at 9:01 Assessment & Plan 89 yr old female with history of afib, dementia, hypertension, hyperlipidemia presented to the ER with complaint of syncope and weakness. Acute third degree heart block with greater than 10 second pause, present on admission, resolved -While in the ER pt sustained long pause due to 3rd degree heart block -Pt underwent Pacemaker placement (08/09/16) -PT evaluation recommendation for discharge back to [facility] with Home Health Physical Therapy Status post pacemaker placement on 08/09/2016 -Pt on Ancef 1 gm daily started on 08/09/16, #2 dose today -Pt started on PO Keflex, will be discharged home with 1 wk course treatment per Cardiology -Pt to be discharged back on home dose of metoprolol. Acute hypokalemia, not present on admission, ongoing -40meq IV given -Recheck labs in AM, replete if needed Acute episode of syncope, present on admission,resolved -CT brain performed in ER demonstrating "No acute intracranial findings.Extensive findings likely associated with microvascular ischemic changes." -Pt underwent Pacemaker placement (08/09/16) Acute pyelonephritis, present on admission, resolved -Patient currently denying any symptoms. -UA performed in ER demonstrating trace leukocyte esterase and WBC -Urine culture with no growth to date End of life care issues,present on admission, ongoing -Discussed code status with patient and her daughter ( who is DPOA), pt is DNR/ DNI Disposition: -Pt to discharge home to [facility] with Home Health per Physical therapy recommendations PCP: Dr Navarro VTE Prophylaxis: SCDs Resuscitation Status: DNR/DNI:Do Not Resuscitate/Intubate Attending Statement The patient was seen and examined together with Dr. Arora on 08/10/2016 and I agree with the history, exam and plan as outlined in the note above. Oxana Arora DO Aug 10, 2016 20:05 Sergio Copeland MD Aug 11, 2016 09:17
[2016-08-11] MEDS: Sodium Chloride LOK Flush 10 mL Syringe IVFLUSH SCH ×2 (00:51→08:16)
[2016-08-11] MEDS: 0.9% Sodium Chloride 1,000 ML IV SCH ×2 (02:05→11:55)
[2016-08-11 02:31] VITALS: BP 148/76; PULSE 61; RESP 18; O2SAT 93
[2016-08-11 04:32] VITALS: BP 146/74; PULSE 69; RESP 18; O2SAT 93
[2016-08-11 06:01] LABS: BASOPHILS % (AUTO) 0.3 % (0-3); EOSINOPHILS % (AUTO) 4.4 % (0-5); MONOCYTES % (AUTO) 11.1 % (4-12); Mean Corpuscular Hemoglobin 30.8 pg (27.0-35.0); Mean Corpuscular Volume 95.1 fL (81-100); NEUTROPHILS % (AUTO) 62.5 % (40-74); Platelet Count 148 bil/L (150-400)
[2016-08-11 06:23] VITALS: PULSE 71
--- NOTE | 2016-08-11 08:30 | NUR ---
BENJAMIN signed ALVAREZ Mathew
[2016-08-11 10:06] VITALS: PULSE 70
--- NOTE | 2016-08-11 10:55 | NUR ---
Social Work: Readiness for d/c Data: Pt is on day 4 of hospitalization. EMR reviewed, pt discussed in rounds. JAVA SOFTWARE ENGINEER met with pt and daughter to discuss HH and explain the benefits. Pt and daughter decline HH at this time. No further d/c planning needs at this time. JAVA SOFTWARE ENGINEER will continue to follow if needs arise. Assessment: Pt who is independent at baseline. Plan: Pt will d/c home via POV with daughter. No further d/c planning needs at this time. JAVA SOFTWARE ENGINEER will continue to follow if needs arise. ALVAREZ Mathew
[2016-08-11 12:13] VITALS: BP 143/82; PULSE 74; RESP 18; O2SAT 96
--- NOTE | 2016-08-11 13:20 | PCM.DIMED ---
Oxana Arora DO 08/10/16 0839: Discharge Instructions Date of Service Aug 10, 2016 Dates of Hospitalization Aug 07, 2016 at 11:53 Discharge Diagnosis Discharge Diagnosis Acute third degree heart block with greater than 10 second pause with pacemaker placement on 08/09/16 Acute episodes of syncope Acute pyelonephritis End of life care issues PCP: Dr Navarro Medication Instructions Continue taking the Metoprolol. You will need to start taking antibiotics-called Keflex for the next 7 days. Diet Heart Healthy Activity No restrictions Call your provider Fever or Chills, Shortness of breath, Bleeding, Chest pain, Vomitting, Excessive diarrhea, Weakness (unilateral) Patient Instructions Continue taking your metoprolol Take antibiotics( Keflex) for 7 days. You will need to follow up with Cardiology clinic to have your pacemaker wound checked in 7 days. You need to follow up in the Cardiology clinic Follow-up Provider: Terrence Morelos PA-C Follow-up with PCP in: 1 week (pacemaker check) Provider: Avel Walsh MD Follow-up in: 2 weeks Sergio Copeland MD 08/12/16 1124: Oxana Arora DO Aug 10, 2016 08:39 Sergio Copeland MD Aug 12, 2016 11:24
--- NOTE | 2016-08-11 13:45 | NUR ---
Social Work: Discharge Data: Pt i son day 4 of hospitalization. Pt declining HH. No further d/c planning needs. MARINE ENGINE DRIVER will continue to follow if needs arise. Assessment: Pt who is independent at baseline. Plan: Pt will d/c home via POV today. No further d/c planning needs. MARINE ENGINE DRIVER will continue to follow if needs arise. ALVAREZ Mathew
--- NOTE | 2016-08-11 14:16 | NUR ---
Discharge Patient departed unit via wheelchair accompanied by staff and daughter. Prior to discharge, patient displayed adequate elimination, respiratory function and nutritional intake. Patient able to ambulate independently to bathroom and stand by assist in hallway. Discharge instructions reviewed with patient and daughter prior to discharge. All questions addresses. Patient belongings, discharge instructions and prescriptions in hand. Clarification with resident, that per Dr Walsh, patient to continue Metoprolol.
--- NOTE | 2016-08-12 10:52 | PCM.DC.MED ---
Discharge Summary Date of Service Aug 11, 2016 Dates of Hospitalization Date of Hospital Admission Aug 07, 2016 at 11:53 Date of Discharge: Aug 11, 2016 Providers: Admitting Physician: Sergio Copeland MD Primary Care Physician: Juliano Navarro MD Attending Physician: Sergio Copeland MD Diagnosis at Time of Discharge Diagnosis at Time of Discharge Acute third degree heart block with greater than 10 second pause with pacemaker placement on 08/09/16 Acute episodes of syncope Acute pyelonephritis End of life care issues PCP: Dr Navarro [facility] Cardiology Procedures XRay, CTs & MRIs PROCEDURE: X-RAY CHEST ONE VIEW, PORTABLE ([id number]) FINDINGS: Surgical changes and devices: None. Lungs and pleura: No pleural effusions or pneumothorax. Lungs are clear. Mediastinum: Mediastinal contours appear normal. Heart size is normal. Bones and chest wall: No suspicious bony lesions. Overlying soft tissues appear unremarkable. IMPRESSION: No acute cardiopulmonary findings. Dictated by: [place] June M.D. on 08/07/2016 at 9:18 Approved by: [place] June M.D. on 08/07/2016 at 9:18 PROCEDURE: CT BRAIN WITHOUT CONTRAST ([id number]) FINDINGS: Image quality: Excellent. CSF spaces: Basal cisterns are patent. No extra-axial fluid collections. The ventricles are symmetric in size and shape. Brain: No intracranial bleeds or masses. There is cerebral volume loss for age , with resultant ventricular and sulcal prominence. There are periventricular and deep white matter chronic small vessel ischemic changes. There is a small left lacunar infarct. There is intracranial internal carotid artery atherosclerosis. Skull and face: Calvarium and visualized facial bones appear intact, without suspicious lesions. There is a stable right frontal osteoma or small calcified meningioma. Sinuses: Visualized sinuses and mastoids are clear. IMPRESSION: 1. No acute intracranial findings. 2. Extensive findings likely associated with microvascular ischemic changes. Dictated by: [place] June M.D. on 08/07/2016 at 9:01 Approved by: [place] June M.D. on 08/07/2016 at 9:01 Cardiac Echo Impression Interpretation Summary The left ventricle is normal in size. The ejection fraction is estimated to be 60-65%. LVEF has not changed significantly. Left ventricular wall motion is normal. Assessment of diastolic parameters indicates a relaxation abnormality of the left ventricle, consistent with normal filling pressures. The right ventricle is normal in size and function. The right ventricular systolic pressure is estimated at 24 mmHg assuming a right atrial pressure of 8 mm Hg. The left atrium is moderately dilated. Right atrial size is normal. There is no significant valvular heart disease. The ascending aorta is mildly enlarged, which has slightly increased in size. The aortic arch is mildly enlarged (3.5 cm) which has increased as well. Previous measurement was 2.3 cm. Reading Physician:NICOEL Invasive Procedures DATE OF SURGERY: 08/09/2016 PREOPERATIVE DIAGNOSIS(ES): 1. Intermittent complete heart block. 2. Syncope. POSTOPERATIVE DIAGNOSIS(ES): 1. Intermittent complete heart block. 2. Syncope. PROCEDURES PERFORMED: 1. Dual-chamber pacemaker implantation. 2. Left upper extremity venogram. 3. Fluoroscopy. SURGEON: Avel Walsh MD, electrophysiology attending. ARMAMENT INSTALLER: Edwardo Mercado IMPLANTED DEVICES: 1. [employer] pulse generator, model MY5377, serial #[id number]. 2. Right atrial lead [employer], 2088TC, 46 cm, serial #[id number]. 3. RV lead [employer], 2088TC, 52 cm, serial #[id number]. ANESTHESIA: Bolus dosing of Versed and fentanyl were utilized for an appropriate level of sedation. INDICATION: The patient a pleasant 89-year-old woman with a structurally normal heart, syncope, and witnessed intermittent complete heart block. After discussion of risks and benefits of pacemaker implantation, she opted to proceed. PROCEDURAL DESCRIPTION: Following informed signed consent, the patient was taken to the EP laboratory in a fasting nonsedated state, where she was prepped and draped the usual sterile fashion. The left infraclavicular region was infiltrated with 40 cc of a 50/50 mixture bupivacaine and lidocaine. Once adequate anesthesia had been achieved, a 3 cm transverse incision was performed 2 cm below the left clavicle. Dissection was carried down to the pectoralis fascia, and a pocket was then fashioned using combination of electrocautery and blunt dissection. Once adequate hemostasis had been achieved, attempts to access the left axillary vein over the first rib with a micropuncture needle were unsuccessful. A left upper extremity venogram was performed. Under venographic guidance, the vessel was cannulated twice with a micropuncture needle to deploy two 0.035, 3 mm J guidewires. Over the first of these, a 6-[place] tear-away sheath was advanced. Once the guidewire was removed, an active fixation lead was advanced to the RV outflow tract 1 cm over the apex. The lead was affixed in position using its associated active fixation screw. It was connected to external analyzer and demonstrated appropriately sensed R waves, impedance, capture threshold. Lead was checked at 10 V, and there was no evidence of diaphragmatic stimulation. Over the other previously deployed J guidewire, another 6-[place] tear-away sheath was advanced. Once the guidewire was removed, an active fixation lead was advanced to the right atrial appendage. It was affixed in position using its associated active fixation screw. The lead was connected to the external analyzer and demonstrated appropriately sensed P waves, impedance, and capture threshold. The lead was checked at 10 V, and there was no evidence of diaphragmatic stimulation. Once the position and redundancy of both leads were confirmed with multiple fluoroscopic views, the leads were anchored to the prepectoralis fascia using their associated anchoring sleeves and 2-0 Ethibond sutures. The pocket was then copiously irrigated with antibiotic solution. It was connected to a generator. The generator was placed into the pocket. It was affixed to the floor of the pocket using 1-0 Ti-Cron suture. The incision was then closed with running layers of absorbable suture. The wound was dressed with skin adhesive and a small dressing. At the end of the procedure, the needle, sponge, and instrument counts were all correct. COMPLICATIONS: None. ESTIMATED BLOOD LOSS: Negligible. DEVICE MEASURED DATA: 1. Right atrial lead 3.5 mV, 410 ohms, 1.75 V at 0.4 msec. 2. RV lead greater than 12 mV, 690 ohms, 0.5 V at 0.4 msec. FINAL PROGRAM PARAMETERS: DDD 60-130 beats per minute. IMPRESSION: Successful dual-chamber pacemaker implantation. PLAN: 1. Stat portable chest x-ray. Obtain PA and lateral chest x-ray in the morning. 2. Device interrogation in the morning. 3. IV Ancef through tomorrow. 4. Keflex x7 days starting tomorrow. 5. Wound check in one week. ATTENDING STATEMENT: Avel Walsh MD, electrophysiology attending, was present for and supervised/performed all aspects of this procedure. Avel Walsh MD 08/09/16 1017 Brief History From my H& P on08/07/2016 89 yr old female with history of afib, dementia, hypertension, hyperlipidemia presented to the ER with complaint of syncope and weakness. Pt is seen with her daughter in the room, who is the DPOA. Pt reports that last night she began feeling ill, with general fatigue and diarrhea. This morning, the patient was eating breakfast at [facility] when she passed out, and 911 was called. Pt denies any fevers, chills, myalgias. She denies any dysuria, hematuria, abdominal pain nausea or vomiting. Pt reports general weakness, and shortness of breath. Pt notes that she does not use supplemental oxygen at home. While in the ER, patient sustained a long pause with 3rd degree heart block. Sternal rub performed by nurse and patient regained consciousness. Patient and family expressed that they are not interested in pacemaker placement or other invasive treatments. Discussed wishes with patient and her family. Both report that the patient is DNR/DNI, and at this time do not feel that they want to pursue any treatment. Pt is interested in comfort only, and would like to go on Hospice if possible. Pt does not want any interventions.Family and pt report they are not interested in treating the UTI or receiving anything via IV. Pt is not interested in taking any of her home medications. Family note that their focus is comfort. Hospital Course 89 yr old female with history of afib, dementia, hypertension, hyperlipidemia presented to the ER with complaint of syncope and weakness.In the ER pt had a 10 second pause. Cardiology saw the patient and offerred treatment options, however pt declined. At time of admission, family and patient were interested in Hospice and focusing on comfort for the patient. The next morning, the patient and family decided they wanted to pursue pacemaker placement. Cardiology consulted and pacemaker was placed on 08/09/2016. Pt tolerated procedure well and there were no complications. Pt felt much improved following pacemaker placement. Pt was discharge to [facility] with family, in stable condition. Acute third degree heart block with greater than 10 second pause status post pacemaker placement on 08/09/2016, present on admission, resolved -While in the ER pt sustained long pause due to 3rd degree heart block -Pt underwent Pacemaker placement (08/09/16) -PT evaluation recommendation for discharge back to [facility] with Home Health Physical Therapy, patient declined. Status post pacemaker placement on 08/09/2016 -Pt discharged on PO Keflex 1 wk course treatment per Cardiology -Pt discharged back on home dose of metoprolol. Acute hypokalemia, not present on admission, resolved -40meq IV given -Normal next day Acute episode of syncope, present on admission,resolved -CT brain performed in ER demonstrating "No acute intracranial findings.Extensive findings likely associated with microvascular ischemic changes." -Pt underwent Pacemaker placement (08/09/16) Acute pyelonephritis, present on admission, resolved -UA performed in ER demonstrating trace leukocyte esterase and WBC -Urine culture with no growth End of life care issues,present on admission, ongoing -Discussed code status with patient and her daughter ( who is DPOA), pt is DNR/ DNI Disposition: -Pt discharged home to [facility] PCP: Dr Navarro Exam Vital Signs (Last) Date Time Temp Pulse Resp B/P Pulse Ox O2 Delivery O2 Flow Rate FiO2 08/11/16 12:13 36.6 74 18 143/82 96 Room Air 08/07/16 16:12 1.00 Exam General: No acute distress, well-developed, well-nourished, appropriately interactive. Sitting in chair talking with family HEENT: Normocephalic, atraumatic. Anicteric sclerae, moist conjunctivae. Oropharynx with moist mucosa. Neck: Supple with full range of motion. Cardiovascular:Regular rate and regular rhythm with no murmurs, rubs, or gallops appreciated Pulmonary: Clear to auscultation bilaterally with no crackles, wheezes, or rhonchi. Normal respiratory effort with no use of accessory muscles. Abdomen: Bowel tones present. Soft, nontender, nondistended. Extremities: Left arm in sling.No clubbing, cyanosis, edema appreciated. Skin: Incision on left pectoral region, dressing is clean and dry. No erythema or edema surrounding location of pacemaker. Normal temperature, turgor, and texture; no rash, ulcers, or subcutaneous nodules appreciated. Psychiatric: Normal mood and affect. Alert.Oriented to place, not time.Forgetful. Test 08/07/16 08:40 08/07/16 09:54 08/09/16 05:30 08/11/16 05:35 Lactic Acid Level 1.5mmol/L (0.4-2.0) Urine Color Yellow (YELLOW) Urine Appearance Clear (CLEAR,HAZY) Urine pH 6.0 (5.0-8.0) Urine Specific [place] 1.025 (1.003-1.035) Urine Protein Negativemg/dL (NEG,TRACE) Urine Glucose (UA) Negativemg/dL (NEGATIVE) Urine Ketones Negativemg/dL (NEGATIVE) Urine Occult Blood Negative (NEGATIVE) Urine Nitrite Negative (NEGATIVE) Urine Bilirubin Negative (NEGATIVE) Urine Urobilinogen Normalmg/dL (NORMAL) Urine Leukocyte Esterase Trace (NEGATIVE) Urine RBC 0-2/hpf (0-2) Urine WBC 0-5/hpf (0-5) Urine Epithelial Cells Occasional/hpf (NONE-MOD) Urine Crystals None seen (NONE SEEN) Urine Bacteria None/hpf (NONE-FEW) Urine Hyaline Casts None/lpf (NONE) Urine Granular Casts None seen (NONE SEEN) Urine Waxy Casts None seen (NONE SEEN) Urine Red Blood Cell Casts None seen (NONE SEEN) Urine White Blood Cell Casts None seen (NONE SEEN) Urine Mucus Present (None Seen) Urine Trichomonas None seen (NONE SEEN) Urine Yeast None (NONE SEEN) Urinalysis Comment None Urine Culture Reflexed Indicated Prothrombin Time 9.9sec (8.1-12.5) Prothromb Time International Ratio 0.93ratio White Blood Count 6.6th/mm3 (3.8-10.1) Red Blood Count 4.06mil/mm3 (3.90-5.20) Hemoglobin 12.5g/dL (12.0-15.6) Hematocrit 38.6% (35.0-46.0) Mean Corpuscular Volume 95.1fL (81-100) Mean Corpuscular Hemoglobin 30.8pg (27.0-35.0) Mean Corpuscular Hemoglobin Concent 32.4% (32.0-37.0) Red Cell Distribution Width 12.9% (12.3-15.4) Platelet Count 148bil/L (150-400) Neutrophils (%) (Auto) 62.5% (40-74) Lymphocytes (%) (Auto) 21.4% (14-46) Monocytes (%) (Auto) 11.1% (4-12) Eosinophils (%) (Auto) 4.4% (0-5) Basophils (%) (Auto) 0.3% (0-3) Sodium Level 140mEq/L (134-144) Potassium Level 3.6mEq/L (3.5-5.2) Chloride Level 106mEq/L (97-108) Carbon Dioxide Level 23mmol/L (18-29) Blood Urea Nitrogen 10mg/dL (8-27) Creatinine 0.32mg/dL (0.57-1.00) Estimat Glomerular Filtration Rate 279mL/min (>59) Glucose Level 97mg/dL (60-99) Calcium Level 8.2mg/dL (8.5-10.1) Total Bilirubin 0.5mg/dL (0.0-1.2) Aspartate Amino Transf (AST/SGOT) 30U/L (0-50) Alanine Aminotransferase (ALT/SGPT) 24U/L (0-32) Alkaline Phosphatase 54U/L (25-165) Total Protein 5.4g/dL (6.4-8.4) Albumin 3.0g/dL (3.4-5.0) Discharge Medications Discharge Medications Cephalexin (Keflex) 500 Mg Capsule 500 MG PO BID Prescribed by: DEBORAH ALEJANDRE DO Donepezil (Donepezil) 10 Mg Tablet 20 MG PO HS (Reported) Lisinopril (Lisinopril) 20 Mg Tablet 20 MG PO DAILY (Reported) Metoprolol Tartrate (Metoprolol Tartrate) 25 Mg Tablet 25 MG PO BID (Reported) Additional med instructions Continue taking the Metoprolol. You will need to start taking antibiotics-called Keflex for the next 7 days. Followup Plan Disposition: [facility] Discharge Diet: Heart Healthy Discharge Activity: No restrictions Patient Instructions Continue taking your metoprolol Take antibiotics( Keflex) for 7 days. You will need to follow up with Cardiology clinic to have your pacemaker wound checked in 7 days. You need to follow up in the Cardiology clinic Follow-up Provider: Terrence Morelos PA-C Follow-up with PCP in: 1 week (pacemaker check) Provider: Avel Walsh MD Follow-up in: 2 weeks Time spent 40 minutes Attending Statement The patient was seen and examined together with Dr. Alejandre on 08/11/2016 and I agree with the history, exam and plan as outlined in the note above. copies to: Juliano Navarro MD, Tara L DO Aug 12, 2016 10:52 Sergio Copeland MD Aug 12, 2016 11:25
== END 2016-08-11 14:15 | disposition home or self-care (01) | DRG 243 ==
LOC: SED 08:03 → UNDOADMOB 11:53 → OFED 11:53 → OBSVTOIN 11:53 → OSC 08-08 11:59 → OFED 08-08 12:29 → MPC 08-08 14:31
PROVIDERS: ADMIT Family Medicine; ATTEND Family Medicine
PROC: 0JH606Z Insertion of Pacemaker, Dual Chamber into Chest Subcutaneous Tissue and Fascia, Open Approach (ICD-10-PCS; principal; 2016-08-09)
PROC: 02H63JZ Insertion of Pacemaker Lead into Right Atrium, Percutaneous Approach (ICD-10-PCS; 2016-08-09)
PROC: 02HK3JZ Insertion of Pacemaker Lead into Right Ventricle, Percutaneous Approach (ICD-10-PCS; 2016-08-09)
DX: I44.2 Atrioventricular block, complete (principal); N10 Acute pyelonephritis; I10 Essential (primary) hypertension; E78.5 Hyperlipidemia, unspecified; Z66 Do not resuscitate; F03.90 Unspecified dementia, unspecified severity, without behavioral disturbance, psychotic disturbance, mood disturbance, and anxiety; R55 Syncope and collapse; Z91.81 History of falling; I48.0 Paroxysmal atrial fibrillation; Z79.82 Long term (current) use of aspirin